=== PATIENT | female | born 1950 | race Caucasian/White ===

== ENCOUNTER 2018-05-25 08:29 | Emergency (ER) | payer MEDICARE ==
[2018-05-25 08:34] VITALS: BP 172/66
[2018-05-25] MEDS ORDERED: KETOROLAC TROMETHAMINE 60 MG/2 ML SDV IM ONE (09:14)
--- NOTE | 2018-05-25 09:23 | ER Document Report ---
ED General - General Chief Complaint: Foot Pain Stated Complaint: RIGHT FOOT PAIN Time Seen by Provider: 05/25/18 09:13 Mode of Arrival: Ambulatory TRAVEL OUTSIDE OF THE [place] IN LAST 30 DAYS: No - HPI Notes: 67-year-old female presents to the ED with complaints of right ankle and foot pain after a bag of mulch fell on her approximately 5 days ago, reports pain is 4 out of 10, throbbing achy. States pain is been going down, she has been taking [id number] ibuprofen and Tylenol as well as applying ice. Able to bear full weight. Denies any numbness or tingling to bilateral lower extremities. Denies any other area of injury. States she noticed bruising at the upper part of her foot. Denies previous injury to her foot or ankle. Eating and drinking without issues. Denies fevers, chills, chest pain, palpitations, shortness of breath, dyspnea, LH, dizziness, syncope, headaches, wheezing, ST, URI, neck pain, weakness, bowel or bladder dysfunction, saddle anesthesia, numbness or tingling in bilateral upper or lower extremities equally , muscle paralysis, weakness in bilateral upper or lower extremities equally or rash. - Related Data Allergies/Adverse Reactions: No Known Allergies Allergy (Unverified 10/31/16 10:14) Past Medical History - General Information source: Patient - Social History Smoking Status: Never Smoker Frequency of alcohol use: None Drug Abuse: None Family History: Reviewed & Not Pertinent Patient has suicidal ideation: No Patient has homicidal ideation: No - Past Medical History Cardiac Medical History: Denies: Hx Heart Attack, Hx Hypertension Pulmonary Medical History: Denies: Hx Asthma Neurological Medical History: Reports: Hx Seizures - WHEN 9 OR 10 (DNK). Denies : Hx Cerebrovascular Accident Renal/ Medical History: Reports: Hx Kidney Stones. Denies: Hx Peritoneal Dialysis GI Medical History: Denies: Hx Hepatitis, Hx Hiatal Hernia, Hx Ulcer Infectious Medical History: Denies: Hx Hepatitis Past Surgical History: Denies: Hx Mastectomy, Hx Open Heart Surgery, Hx Pacemaker Review of Systems - Review of Systems Constitutional: No symptoms reported EENT: No symptoms reported Cardiovascular: No symptoms reported Respiratory: No symptoms reported Gastrointestinal: No symptoms reported Genitourinary: No symptoms reported Female Genitourinary: No symptoms reported Musculoskeletal: See HPI Skin: No symptoms reported Hematologic/Lymphatic: No symptoms reported Neurological/Psychological: No symptoms reported Physical Exam - Vital signs Vitals: Temp Pulse Resp BP Pulse Ox 98.4 F 65 16 172/66 H 97 05/25/18 08:33 05/25/18 08:33 05/25/18 08:33 05/25/18 08:33 05/25/18 08:33 - Notes Notes: PHYSICAL EXAMINATION: GENERAL: Well-appearing, well-nourished and in no acute distress. HEAD: Atraumatic, normocephalic. EYES: Pupils equal round and reactive to light, extraocular movements intact, conjunctiva are normal. ENT: Nares patent, oropharynx clear without exudates. Moist mucous membranes. NECK: Normal range of motion, supple without lymphadenopathy LUNGS: Breath sounds clear to auscultation bilaterally and equal. No wheezes rales or rhonchi. HEART: Regular rate and rhythm without murmurs ABDOMEN: Soft, nontender, nondistended abdomen. No guarding, no rebound. No masses appreciated. Female : deferred Musculoskeletal: Normal range of motion, no pitting or edema. No cyanosis. Right ankle with swelling, tenderness on lateral aspect of ankle and anterior aspect of right foot on her tarsal bone. Some pain pain with inversion. squeeze test negative bilateral upper extremities. dtr +2 BLE. Limited APROM. distal pulses + 2 BLE equally. Full motor and sensory function of bilateral lower extremities. No noted open wounds or abrasion. Normal gait. No vascular compromise. Peroneal nerve is intact with strong eversion and plantar flexion. Negative anterior drawer test. NEUROLOGICAL: Cranial nerves grossly intact. Normal speech, normal gait. Normal sensory, motor exams PSYCH: Normal mood, normal affect. SKIN: Warm, Dry, normal turgor, no rashes or lesions noted. Course - Re-evaluation Re-evalutation: 05/25/18 09:28 Healthy 67-year-old female is afebrile, vitals stable no distress presents for evaluation of right ankle and foot pain after having an object which she describes mild swelling in her foot approximately 5 days ago. X-ray of right foot and ankle negative for any acute findings per radiology. We will give patient a postop shoe and ankle stirrup, advised to follow-up with environmental management specialist within 1 week, follow Rice therapy instead advised to use heat. Offered patient crutches however she refused. Low suspicion for open fracture, compartment syndrome, tendon rupture, acute neurovascular injury with retained foreign body, as I consider discharge disposition reasonable. I have reevaluated this patient multiple times and no significant life threatening changes, no signs of toxicity, sepsis or peritonitis are noted. The patient and I have discussed the diagnosis and risks, and we agree with discharging home and close follow-up. We also discussed returning to the Emergency Department immediately if new or worsening symptoms occur with the understanding that symptoms and presentations can change. At this time will discharge with return precautions and follow-up recommendations. Verbal discharge instructions given a the bedside and opportunity for questions given. We have discussed the symptoms which are most concerning (e.g.,changing or worsening pain, fever, numbness, weakness, cool or painful digits) that necessitate immediate return. Medication warnings reviewed. All questions and concerns answered by this provider. Patient is in agreement with this plan and has verbalized understanding of return precautions and the need for primary care follow-up in the next 24-72 hours. Patient verbalized understanding of plan of care and agree with plan of care. - Vital Signs Vital signs: Temp Pulse Resp BP Pulse Ox 98.4 F 65 16 172/66 H 97 05/25/18 08:33 05/25/18 08:33 05/25/18 08:33 05/25/18 08:33 05/25/18 08:33 Discharge - Discharge Clinical Impression: Right ankle sprain Qualifiers: Encounter type: initial encounter Involved ligament of ankle: other ligament Qualified Code(s): S93.491A - Sprain of other ligament of right ankle, initial encounter Right foot sprain Qualifiers: Encounter type: initial encounter Qualified Code(s): S93.601A - Unspecified sprain of right foot, initial encounter Condition: Stable Disposition: HOME, SELF-CARE Instructions: Ankle Stirrup Splint ([facility]), Exercises for the Foot Muscles ([facility]) , Soft Ankle Splint ([facility]), Sprain ([facility]), Sprained Ankle ([facility]) Prescriptions: Meloxicam 7.5 mg PO DAILY #5 tablet Forms: Return to Work Referrals: OLE CANDELARIO MD [Primary Care Provider] - Follow up as needed ISRAEL REMY DO [ACTIVE STAFF] - Follow up in 1 week
--- NOTE | 2018-05-25 10:04 | RADIOLOGY REPORT (SQ) ---
EXAM DESCRIPTION: ANKLE RIGHT COMPLETE; FOOT RIGHT COMPLETE COMPLETED DATE/TIME: 05/25/2018 9:40 am REASON FOR STUDY: ankle/foot pain x 5 days ago; R ankle/foot pain, object fell on foot x 5days ago COMPARISON: None. NUMBER OF VIEWS: Six views. TECHNIQUE: AP, lateral, and oblique radiographic images acquired of the right ankle with AP, lateral and oblique views of the right foot. LIMITATIONS: None. FINDINGS: MINERALIZATION: Normal. BONES: No acute fracture or dislocation. No worrisome bone lesions. Small osteophyte off the anteri or aspect of the ankle. Small well corticated bony densities adjacent to the medial malleolus and an terior ankle suggesting old injury. Moderate size calcaneal spur at the insertion of the plantar apo neurosis. JOINTS: No effusions. Minimal degenerative changes. SOFT TISSUES: No soft tissue swelling. No foreign body. OTHER: No other significant finding. IMPRESSION: Chronic findings without evidence of acute fracture. TECHNICAL DOCUMENTATION: JOB ID: [id number] [employer]- All Rights Reserved Reading location - IP/workstation name: [email or web address]
--- NOTE | 2018-05-25 10:04 | RADIOLOGY REPORT (SQ) ---
EXAM DESCRIPTION: ANKLE RIGHT COMPLETE; FOOT RIGHT COMPLETE COMPLETED DATE/TIME: 05/25/2018 9:40 am REASON FOR STUDY: ankle/foot pain x 5 days ago; R ankle/foot pain, object fell on foot x 5days ago COMPARISON: None. NUMBER OF VIEWS: Six views. TECHNIQUE: AP, lateral, and oblique radiographic images acquired of the right ankle with AP, lateral and oblique views of the right foot. LIMITATIONS: None. FINDINGS: MINERALIZATION: Normal. BONES: No acute fracture or dislocation. No worrisome bone lesions. Small osteophyte off the anteri or aspect of the ankle. Small well corticated bony densities adjacent to the medial malleolus and an terior ankle suggesting old injury. Moderate size calcaneal spur at the insertion of the plantar apo neurosis. JOINTS: No effusions. Minimal degenerative changes. SOFT TISSUES: No soft tissue swelling. No foreign body. OTHER: No other significant finding. IMPRESSION: Chronic findings without evidence of acute fracture. TECHNICAL DOCUMENTATION: JOB ID: [id number] [employer]- All Rights Reserved Reading location - IP/workstation name: [email or web address]
== END 2018-05-25 10:34 | disposition home or self-care (01) ==
LOC: ER 08:29
DX: S93.491A Sprain of other ligament of right ankle, initial encounter (principal); S93.601A Unspecified sprain of right foot, initial encounter; W22.8XXA Striking against or struck by other objects, initial encounter; Z87.442 Personal history of urinary calculi
CPT/HCPCS: 99283; 96372; 73610; 73630; L1902; J1885